=== PATIENT | male | born 1955 | race African-American/Black ===

== ENCOUNTER 2017-05-16 07:50 | Emergency (ER) | payer OTHER, SELFPAY ==
[2017-05-16] MEDS ORDERED: Ibuprofen 800 MG TAB ONE (08:37)
== END 2017-05-16 08:40 | disposition home or self-care (01) ==
LOC: MADERS 07:50
DX: M17.11 Unilateral primary osteoarthritis, right knee (principal); E78.5 Hyperlipidemia, unspecified; I10 Essential (primary) hypertension; F17.210 Nicotine dependence, cigarettes, uncomplicated
CPT/HCPCS: 99283

== ENCOUNTER 2017-08-15 11:50 | Emergency (ER) | payer OTHER ==
[2017-08-15 13:28] LABS: #Basophils 0.1 thou/uL (0.0-0.2); #Eosinphils 0.1 thou/uL (0.0-0.7); #Lymphocytes 2.8 thou/uL (1.20-3.40); #Monocytes 0.7 thou/uL (0.11-0.59); #Neutrophils 5.1 thou/uL (1.40-6.50); %Basophils 1.3 % (0.0-1.0); %Eosinophils 0.6 % (0.0-10.0); %Lymphocytes 31.9 % (21.0-51.0); %Monocytes 8.2 % (0.0-10.0); Hemoglobin 16.5 g/dL (14.0-18.0); Mean Corpuscular HGB CONC 32.8 g/dL (32.0-36.0); Mean Corpuscular Hemoglobin 30.3 pg (27.0-31.0); Mean Corpuscular Volume 92.6 fl (80.0-94.0); Mean Platelet Volume 9.1 fL (7.4-10.4); Platelet Count 141 thou/uL (130-400); RBC Distribution Width 11.9 % (11.5-14.5); Red Blood Cell (RBC) Count 5.45 mill/uL (4.70-6.10); White Blood Cell (WBC) Count 8.7 thou/uL (4.8-10.8)
[2017-08-15 13:28] LABS: Bilirubin Negative (Negative); Blood, Urine Negative (Negative); Glucose, Urine (Dipstick) Negative (Negative); Leukocyte Negative (Negative); Nitrite Negative (Negative); Protein, Urine (Dipstick) Trace mg/dL (Neg-Trace); Specific Gravity, Urine 1.015 (1.005-1.030)
[2017-08-15 13:37] LABS: Bacteria/HPF Rare-Few HPF (None Seen); Clarity Hazy (Clear); RBC/HPF 0-3 HPF (0-3); WBC/HPF 0-3 HPF (0-3)
== END 2017-08-15 14:18 | disposition home or self-care (01) ==
LOC: MADERS 11:50
DX: B34.9 Viral infection, unspecified (principal); E78.5 Hyperlipidemia, unspecified; I10 Essential (primary) hypertension; F17.200 Nicotine dependence, unspecified, uncomplicated
CPT/HCPCS: 36415; 81001; 85025; 87086; 99284

== ENCOUNTER 2018-03-16 00:35 | Emergency (ER) | payer OTHER | END 2018-03-16 01:10 | disposition home or self-care (01) | LOC: MADERS 00:35 | DX: M25.561 Pain in right knee (principal); E78.5 Hyperlipidemia, unspecified; I10 Essential (primary) hypertension | CPT/HCPCS: 99281 ==